=== PATIENT | male | born 1950 | race Caucasian/White ===

== ENCOUNTER 2018-01-23 10:04 | Day surgery (SDC) | payer MEDICARE ==
[~2018-01-23 10:04] MED LIST: ACETAMINOPHEN 325 MG TAB PO; MIDAZOLAM INJ 2 MG/2 ML VIAL (J2250) As Ordered; PHENYLEPHRINE HCL 10 % OPHTH. SOL 5ML OD; fentaNYL 100 MCG/2 ML INJECTION (J3010) As Ordered
[2018-01-23] MEDS: PHENYLEPHRINE 2.5% OPHTH SOL 2ML OD (11:12)
[2018-01-23] MEDS: TROPICAMIDE 1% OPHTH SOLN 2ML OD (11:12)
[2018-01-23] MEDS: CYCLOPENTOLATE 2% OPHTH SOLN 2ML BTL OD (11:12)
[2018-01-23] MEDS: LIDOCAINE 3.5 % 1ML OPHTH TOPICAL GEL OU (11:13)
[2018-01-23] MEDS: OFLOXACIN 0.3 % (OCUFLOX) OPTH SOL 5ML OD (11:13)
[2018-01-23 11:23] LABS: BEDSIDE GLUCOSE 149 MG/DL (80-115)
[2018-01-23] MEDS: POVIDONE-IODINE 5% OPHTH PREP SOL 30ML As Ordered (12:32)
[2018-01-23] MEDS: HEALON DUET PRO(HEALON 10MG/ML 0.55ML & HEALON ENDOCOAT 30MG/ML 0.85ML) As Ordered (12:32)
[2018-01-23] MEDS: LIDOCAINE 1% SDV 5 ML VIAL As Ordered (12:33)
[2018-01-23] MEDS: MOXIFLOXACIN IN BSS 0.25MG/0.25ML INTRACAMERAL INJ (OR EYE ONLY)(J2280) As Ordered (12:34)
[2018-01-23] MEDS: BSS with VANC/TOB/EPI for EYE CASES IR (12:34)
[2018-01-23] MEDS: TRIAMCINOLONE PRES FR 40 MG/ML 1ML(TRIESENCE)(OR EYE ONLY)(J3300 PER 1MG) As Ordered (12:34)
[2018-01-23 12:56] LABS: BEDSIDE GLUCOSE 127 MG/DL (80-115)
[2018-01-23] MEDS ORDERED: AcetaZOLAMIDE 500 MG ER CAP As Ordered (13:24)
[2018-01-23] MEDS: AcetaZOLAMIDE 500 MG ER CAP PO (13:35)
[2018-01-23] MEDS ORDERED: ONDANSETRON 4MG/2ML VIAL (J2405) IV (13:45)
[2018-01-23] MEDS ORDERED: TRIMETHOBENZAMIDE 300 MG CAP PO (13:45)
== END 2018-01-23 13:40 | disposition home or self-care (01) ==
LOC: M SDC 10:04
DX: H25.9 Unspecified age-related cataract (principal); G47.30 Sleep apnea, unspecified; I10 Essential (primary) hypertension; Z95.0 Presence of cardiac pacemaker; K21.9 Gastro-esophageal reflux disease without esophagitis; E78.5 Hyperlipidemia, unspecified; I25.10 Atherosclerotic heart disease of native coronary artery without angina pectoris; Z79.01 Long term (current) use of anticoagulants; Z79.899 Other long term (current) drug therapy
CPT/HCPCS: 66984

== ENCOUNTER 2018-02-14 06:55 | Day surgery (SDC) | payer MEDICARE ==
[~2018-02-14 06:55] MED LIST changes: -MIDAZOLAM INJ 2 MG/2 ML VIAL (J2250) As Ordered; -PHENYLEPHRINE HCL 10 % OPHTH. SOL 5ML OD; -fentaNYL 100 MCG/2 ML INJECTION (J3010) As Ordered
[2018-02-14] MEDS: ACETYLCHOLINE OPHTH SOLN 1% 2ML (MIOCHOL-E) As Ordered (06:59)
[2018-02-14] MEDS ORDERED: LIDOCAINE 3.5 % 1ML OPHTH TOPICAL GEL OU (07:00)
[2018-02-14] MEDS ORDERED: PHENYLEPHRINE HCL 10 % OPHTH. SOL 5ML OS (07:00)
[2018-02-14] MEDS ORDERED: CYCLOPENTOLATE 2% OPHTH SOLN 2ML BTL As Ordered (07:44)
[2018-02-14] MEDS ORDERED: TROPICAMIDE 1% OPHTH SOLN 2ML As Ordered (07:44)
[2018-02-14] MEDS ORDERED: PHENYLEPHRINE 2.5% OPHTH SOL 2ML As Ordered (07:44)
[2018-02-14] MEDS ORDERED: OFLOXACIN 0.3 % (OCUFLOX) OPTH SOL 5ML As Ordered (07:44)
[2018-02-14 07:48] LABS: BEDSIDE GLUCOSE 168 MG/DL (80-115)
[2018-02-14] MEDS: CYCLOPENTOLATE 2% OPHTH SOLN 2ML BTL OS (08:20)
[2018-02-14] MEDS: TROPICAMIDE 1% OPHTH SOLN 2ML OS (08:20)
[2018-02-14] MEDS: OFLOXACIN 0.3 % (OCUFLOX) OPTH SOL 5ML OS (08:20)
[2018-02-14] MEDS: PHENYLEPHRINE 2.5% OPHTH SOL 2ML OS (08:20)
[2018-02-14] MEDS ORDERED: fentaNYL 100 MCG/2 ML INJECTION (J3010) As Ordered (09:31)
[2018-02-14] MEDS ORDERED: MIDAZOLAM INJ 2 MG/2 ML VIAL (J2250) As Ordered (09:31)
[2018-02-14] MEDS: POVIDONE-IODINE 5% OPHTH PREP SOL 30ML As Ordered (10:22)
[2018-02-14] MEDS: LIDOCAINE 1% SDV 5 ML VIAL As Ordered (10:27)
[2018-02-14] MEDS: HEALON DUET PRO(HEALON 10MG/ML 0.55ML & HEALON ENDOCOAT 30MG/ML 0.85ML) As Ordered (10:27)
[2018-02-14] MEDS: MOXIFLOXACIN IN BSS 0.25MG/0.25ML INTRACAMERAL INJ (OR EYE ONLY)(J2280) As Ordered (10:27)
[2018-02-14] MEDS: LIDOCAINE 2% W/EPIN INJ 20ML **PRES FREE As Ordered (10:27)
[2018-02-14] MEDS: TRIAMCINOLONE PRES FR 40 MG/ML 1ML(TRIESENCE)(OR EYE ONLY)(J3300 PER 1MG) As Ordered (10:28)
[2018-02-14] MEDS: BSS with VANC/TOB/EPI for EYE CASES IR (10:28)
[2018-02-14] MEDS ORDERED: ONDANSETRON 4MG/2ML VIAL (J2405) IV (11:00)
[2018-02-14] MEDS ORDERED: TRIMETHOBENZAMIDE 300 MG CAP PO (11:00)
[2018-02-14] MEDS: AcetaZOLAMIDE 500 MG ER CAP PO (11:04)
== END 2018-02-14 11:16 | disposition home or self-care (01) ==
LOC: M SDC 06:55
DX: H25.9 Unspecified age-related cataract (principal); I25.10 Atherosclerotic heart disease of native coronary artery without angina pectoris; Z98.61 Coronary angioplasty status; Z95.810 Presence of automatic (implantable) cardiac defibrillator; I48.91 Unspecified atrial fibrillation; I10 Essential (primary) hypertension; E78.5 Hyperlipidemia, unspecified; E11.9 Type 2 diabetes mellitus without complications; Z79.4 Long term (current) use of insulin; E03.9 Hypothyroidism, unspecified; K21.9 Gastro-esophageal reflux disease without esophagitis; Z79.899 Other long term (current) drug therapy; Z79.01 Long term (current) use of anticoagulants; R06.02 Shortness of breath; F41.9 Anxiety disorder, unspecified; F32.9 Major depressive disorder, single episode, unspecified; Z95.1 Presence of aortocoronary bypass graft
CPT/HCPCS: 66984